=== PATIENT | male | born 1955 | race Caucasian/White ===

== ENCOUNTER → 2017-08-25 | Outpatient (CLI) | payer OTHER ==
[~2017-08-25] MED LIST: LISI20TA3 PO
[2017-08-25 18:22] LABS: ALT/SGPT 56 U/L (12-78); AST/SGOT 68 U/L (15-37); BLOOD UREA NITROGEN 9 mg/dl (7-18); CALCIUM 9.1 mg/dl (8.5-10.1); CARBON DIOXIDE 20 mmol/L (21-32); CHOLESTEROL 150 mg/dl (0-200); CREATININE 1.57 mg/dl (0.60-1.40); GLUCOSE 100 mg/dl (70-99); POTASSIUM 3.9 mmol/L (3.5-5.1); SODIUM 140 mmol/L (136-145)
[2017-08-25 18:25] LABS: ALBUMIN 4.2 gm/dl (3.4-5.0); ALKALINE PHOSPHATASE 66 U/L (45-117); TOTAL PROTEIN 7.9 gm/dl (6.4-8.2)
== END | disposition home or self-care (01) ==
LOC: C.LABPVFM 14:47
PROVIDERS: ATTEND Family Medicine
DX: E78.00 Pure hypercholesterolemia, unspecified (principal); I10 Essential (primary) hypertension; Z12.5 Encounter for screening for malignant neoplasm of prostate

== ENCOUNTER 2023-01-06 20:42 | Observation (INO) ==
[2023-01-06 21:29] LABS: Hematocrit (blood only) 33.9 % (42.0-52.0); Hemoglobin 11.2 g/dl (14.0-18.0); Mean Corpuscular Hemoglobin 33.2 pg (25.0-34.0); Mean Corpuscular Volume 100.6 fL (80.0-100.0); RDW Coefficient of Variation 12.5 % (11.5-14.5); RDW Standard Deviation 45.6 fL (36.4-46.3); Red Blood Count 3.37 M/uL (4.70-6.10); White Blood Count 5.08 K/ul (4.8-10.8)
[2023-01-06 21:39] LABS: Albumin Level 4.3 gm/dl (3.4-5.0); Bilirubin,Total 0.4 mg/dl (0.2-1.0); Calcium 8.5 mg/dl (8.6-10.3); Potassium 3.3 mmol/L (3.5-5.1)
[2023-01-06 21:43] LABS: Partial Thromboplastin Ratio 0.8; Partial Thromboplastin Time 23.9 Seconds (21.0-31.0); Prothrombin Time 11.4 Seconds (9.0-12.0)
[2023-01-06 21:44] LABS: Albumin Globulin Ratio 1.5 (0.9-2); BUN Creatinine Ratio 14.9 (10-20); Creatinine Clr Calc Pharmacy 46.2 ml/min; Est GFR (African American) 55.6 ml/min; Est GFR (Non-African American) 47.9 ml/min; Globulin 2.8 gm/dl (2.5-4.0); Total Protein 7.1 gm/dl (6.0-8.3)
[2023-01-06 21:51] LABS: Troponin I High Sensitivity 4.5 pg/ml (0-20)
[2023-01-06 22:09] LABS: iSTAT Creatinine 1.9 mg/dl (0.6-1.3); iSTAT Hemoglobin 12.6 g/dl (14.0-18.0); iSTAT Ionized Calcium 1.06 mmol/l (1.12-1.32); iSTAT Potassium 3.5 mmol/L (3.3-5.0)
[2023-01-06] MEDS ORDERED: OPTIRAY 320 100ml IV ONE (22:22)
[2023-01-06 22:25] LABS: Basophils # (auto) 0.03 K/uL (0-0.2); Basophils % (auto) 0.6 %; Eosinophils # (auto) 0.09 K/uL (0-0.50); Eosinophils % (auto) 1.8 %; Immature Granulocytes # (auto) 0.03 K/uL (0.01-0.20); Immature Granulocytes % (auto) 0.6 %; Lymphocytes # (auto) 1.68 K/uL (1.2-3.4); Lymphocytes % (auto) 32.7 %; Mean Platelet Volume 12.1 fL (9.4-12.4); Monocytes # (auto) 0.55 K/uL (0.11-0.59); Monocytes % (auto) 10.7 %; Neutrophils # (auto) 2.76 K/uL (1.40-6.50); Neutrophils % (auto) 53.6 %; Platelet Count 141 K/uL (130-400); Tear Drop Cells 1+
--- NOTE | 2023-01-06 23:01 | CT Scan Report ---
Exam(s): CT HEAD Without Contrast EXAM: CT Head Without Intravenous Contrast CLINICAL HISTORY: Reason for exam: fall. TECHNIQUE: Axial computed tomography images of the head/brain without intravenous contrast. Automated exposure control was utilized for the study. A dose lowering technique was utilized adhering to the principles of ALARA. COMPARISON: No relevant prior studies available. FINDINGS: Brain: Unremarkable. No hemorrhage. No significant white matter disease. No edema. Ventricles: Unremarkable. No ventriculomegaly. Bones/joints: Unremarkable. No acute fracture. Soft tissues: Unremarkable. Sinuses: Unremarkable as visualized. No acute sinusitis. Mastoid air cells: Unremarkable as visualized. No mastoid effusion. IMPRESSION: Normal head/brain CT. Electronically signed by: Fuentes Villalobos MD 01/06/23 23:00 PM
--- NOTE | 2023-01-06 23:05 | CT Scan Report ---
Exam(s): CT ABDOMEN + PELVIS With Contrast IV Amt: 91 ML OPTIRAY 320 EXAM: CT Abdomen and Pelvis With Intravenous Contrast CLINICAL HISTORY: Reason for exam: gi bleed. TECHNIQUE: Axial computed tomography images of the abdomen and pelvis with intravenous contrast. Automated exposure control was utilized for the study. A dose lowering technique was utilized adhering to the principles of ALARA. CONTRAST: Patient received 91 ML OPTIRAY 320 of IV contrast COMPARISON: No relevant prior studies available. FINDINGS: Lung bases: Unremarkable. No mass. No consolidation. ABDOMEN: Liver: Unremarkable. No mass. Gallbladder and bile ducts: The gallbladder is contracted. Slight gallbladder wall thickening is present. No gallstones or definite surrounding edema. No ductal dilation. Pancreas: Unremarkable. No mass. No ductal dilation. Spleen: Unremarkable. No splenomegaly. Adrenals: Unremarkable. No mass. Kidneys and ureters: Unremarkable. No solid mass. No hydronephrosis. Stomach and bowel: Unremarkable. No obstruction. No mucosal thickening. PELVIS: Appendix: The appendix is normal. Bowel loops are nondilated. No acute inflammatory changes are seen involving the bowel. Bladder: Unremarkable. No mass. Reproductive: Unremarkable as visualized. ABDOMEN and PELVIS: Intraperitoneal space: Unremarkable. No free air. No significant fluid collection. Bones/joints: Moderate multilevel degenerative changes are seen throughout the spine. No acute fracture or subluxation is seen. Soft tissues: 1 cm umbilical hernia containing fat. Vasculature: The abdominal aorta is mildly calcified but nondilated. There is no aneurysm or dissection. Lymph nodes: Unremarkable. No enlarged lymph nodes. IMPRESSION: The appendix is normal. Bowel loops are nondilated. No acute inflammatory changes are seen involving the bowel. No GI hemorrhage is identified. No acute process is seen within the abdomen or pelvis. Electronically signed by: Fuentes Villalobos MD 01/06/23 23:04 PM
--- NOTE | 2023-01-06 23:36 | Emergency Department Note ---
Impression & Plan Alcohol overdose, Acute lower GI bleeding Admit to the [facility] ED Provider Note NAME: BUCKY CRUZ AGE: 67 SEX: M ARRIVES VIA: Ambulance INFORMANT: [Patient] ED PROVIDER(S): Maggi Morley DO CHIEF COMPLAINT: Fall PLAN: Disposition: Admit to the [facility] Condition: Fair MEDICAL DECISION MAKING: This is a 67-year-old male patient who fell through a screen door at home and then became incontinent of bloody stool. He was found this way by his girlfriend. He does have a history of alcohol abuse. EMS was called and he was transported here where he proceeded to have another episode of hematochezia. Patient remained hemodynamically stable. H&H were stable. He does have routine colonoscopies which have been normal as the patient has a strong family history of colon cancer. Blood alcohol level was greater than 300. Patient normal renal function and normal LFTs except for mildly elevated ammonia level. Patient had a normal EKG and normal troponin. CT scan of the brain was normal and CT scan of the abdomen/pelvis were normal. I discussed the case with the [facility] and they will evaluate for further inpatient care. Triage Nursing notes reviewed and agree with them. [Additional history obtained from] his daughters who are at the bedside Vital Signs: reviewed and unremarkable Differential diagnosis: Diverticular bleed, anemia, lower GI bleed, syncope ER treatment provided: Cardiac monitoring Twelve-lead EKG Diagnostics interpreted by me: ECG: Normal sinus rhythm at a rate of [address] segment elevation or signs of ischemia. There is no ectopy. Cardiac Monitoring: [none] Laboratory studies: [See below] [] Imaging studies: As per stat rad CT scan of the brain: No acute traumatic injury CT scan of the abdomen/pelvis: See report HPI: 67/M arrives for evaluation of fall and hematochezia. Patient had come home from work and drank his usual 4 beers and shots of whiskey. He had been cooking a pork chop at the stove which was last thing he remembers. His girlfriend arrived at home and found that he had fallen through a screen door. The patient got up and had a large bright red bloody diarrheal bowel movement. He remained slightly confused after this. 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 HOME MEDICATIONS:See list ALLERGIES:See list VITALS:[See Below] PHYSICAL EXAMINATION: HEENT: Head - normocephalic and atraumatic. Pupils are equal, round, and reactive to light. Extraocular eye muscles are intact, and sclera are anict marge. Nose - moist nasal mucosa without discharge. Mouth - moist buccal mucosa. Oropharynx is nonerythematous and there is no tonsillar exudate or edema noted. Neck: Supple; no cervical lymphadenopathy appreciated. No JVD Heart: Regular rate and rhythm. There is a normal S1 and S2 with no murmurs, clicks, or gallops appreciated. Lungs: Clear to auscultation bilaterally with no wheezes, rales, or rhonchi. Abdomen: Soft, completely nontender, nondistended, with good bowel sounds. There are no palpable pulsatile masses or hepatosplenomegaly. There is no guarding, rigidity, or rebound noted. Extremities: Large abrasion to the left lateral forearm. There are easily palpable peripheral pulses. Skin: warm and dry with good turgor and no rashes. ED COURSE: Times/Reassessments: 2100 the patient was evaluated in room C7. A complete his tory and physical was performed. An order was placed for continuous cardiac monitoring. Patient was in a normal sinus rhythm at a rate of 92. A twelve-lead EKG was obtained as described above. Maggi Morley DO Past Med/Surg History Social History Smoking Status: Former smoker Second Hand Exposure: No; Do You Dip or Chew Tobacco: No; Tobacco Cessation Education Requested by Patient: No Hx Alcohol Use: Yes Alcohol type: beer Hx Substance Use: No Preferred Language: Croatian Communication Ability: Effective Radio Equipment Repairer Required: No Beliefs That Will Affect Care: None Current Living Situation: Significant Other Other Information That Helps Us Care for You: No Feels Safe at Home: Yes Safety Concerns: Feels Safe At This Time Assistive Devices: Glasses Allergies Allergies Allergy/AdvReac Type Severity Reaction Status Date / Time Sutures Allergy Allergy to Verified 01/07/23 01:31 cat gut sutures Home Meds Home Medications Medication Instructions Recorded Confirmed fenofibrate nanocrystallized 145 145 mg PO DAILY 01/06/23 01/06/23 mg tablet lisinopril 40 mg tablet 40 mg PO DAILY 01/06/23 01/06/23 tamsulosin 0.4 mg capsule 0.4 mg PO DAILY 01/06/23 01/06/23 Results & Data (ED) Vital Signs Vital Signs - 24 hr 01/06/23 20:53 01/06/23 20:53 01/06/23 20:53 Temperature 36.5 C Temperature Source Oral Pulse Rate 96 H Pulse Rate [Apical] 96 H Pulse Rhythm Regular Pulse Rhythm [Apical] Regular Pulse Strength Normal Pulse Strength [Apical] Normal Respiratory Rate 18 18 Respiratory Effort / Characteristics Non-Labored Non-Labored Respiratory Depth Normal Normal Respiratory Pattern Regular Regular Blood Pressure 158/92 H Blood Pressure [Right Arm] 158/92 H Blood Pressure Mean 114 Blood Pressure Mean [Right Arm] 114 Blood Pressure Position Lying Blood Pressure Position [Right Arm] Pulse Oximetry 96 96 Oxygen Delivery Method Room Air Room Air Room Air Sepsis Recent Fever Within 48 Hours No Sepsis New/Unexplained Change in Mental Status No Sepsis Action Taken by Nursing No Action Required 01/06/23 21:18 01/06/23 20:55 01/06/23 23:09 Temperature Temperature Source Pulse Rate 104 H Pulse Rate [Apical] 85 Pulse Rhythm Pulse Rhythm [Apical] Regular Pulse Strength Pulse Strength [Apical] Normal Respiratory Rate 20 Respiratory Effort / Characteristics Non-Labored Spontaneous Respiratory Depth Normal Respiratory Pattern Regular Blood Pressure Blood Pressure [Right Arm] 123/74 Blood Pressure Mean Blood Pressure Mean [Right Arm] 90 Blood Pressure Position Blood Pressure Position [Right Arm] Lying Pulse Oximetry 99 95 Oxygen Delivery Method Room Air Room Air Sepsis Recent Fever Within 48 Hours Sepsis New/Unexplained Change in Mental Status Sepsis Action Taken by Nursing Laboratory Data 01/06/23 21:07 01/06/23 21:07 Lab Results 01/06/23 01/06/23 01/06/23 Range/Units 21:07 21:07 21:07 WBC 5.08 (4.8-10.8) K/ul RBC 3.37 L (4.70-6.10) M/uL Hgb 11.2 L (14.0-18.0) g/dl POC Hgb (14.0-18.0) g/dl Hct 33.9 L (42.0-52.0) % POC Hct (42-52) % MCV 100.6 H (80.0-100.0) fL MCH 33.2 (25.0-34.0) pg MCHC 33.0 (32.0-36.0) g/dL RDW Std Deviation 45.6 (36.4-46.3) fL RDW Coeff of Alex 12.5 (11.5-14.5) % Plt Count 141 (130-400) K/uL MPV 12.1 (9.4-12.4) fL Immature Gran % (Auto) 0.6 % Neut % (Auto) 53.6 % Lymph % (Auto) 32.7 % [place] % (Auto) 10.7 % Eos % (Auto) 1.8 % Baso % (Auto) 0.6 % Neut # (Auto) 2.76 (1.40-6.50) K/uL Lymph # (Auto) 1.68 (1.2-3.4) K/uL [place] # (Auto) 0.55 (0.11-0.59) K/uL Eos # (Auto) 0.09 (0-0.50) K/uL Baso # (Auto) 0.03 (0-0.2) K/uL Immature Gran # (Auto) 0.03 (0.01-0.20) K/uL Tear Drop Cells 1+ PT 11.4 (9.0-12.0) Seconds INR 1.0 (0.9-1.1) APTT 23.9 (21.0-31.0) Seconds PTT Ratio 0.8 POC Sodium (135-144) mmol/L Sodium (136-145) mmol/L POC Potassium (3.3-5.0) mmol/L Potassium (3.5-5.1) mmol/L POC Chloride (101-112) mmol/L Chloride (98-107) mmol/L Carbon Dioxide (21-32) mmol/L POC Total CO2 (24-31) mmol/L Anion Gap (3-11) POC Anion Gap (16-25) mmol/L POC BUN (7-18) mg/dl BUN (6-23) mg/dl Creatinine (0.6-1.4) mg/dl POC Creatinine (0.6-1.3) mg/dl Est Cr Clr Drug Dosing ml/min Est GFR ( Amer) ml/min Est GFR (Non-Af Amer) ml/min BUN/Creatinine Ratio (10-20) Glucose (70-99(Fasting)) mg/dl POC Glucose (other) (70-99) mg/dl Calcium (8.6-10.3) mg/dl POC Ioniz Calcium Mckenna (1.12-1.32) mmol/l Total Bilirubin (0.2-1.0) mg/dl AST (13-39) U/L ALT (7-52) U/L Alkaline Phosphatase (34-104) U/L Ammonia (18-72) umol/L Troponin I High Sens (0-20) pg/ml Total Protein (6.0-8.3) gm/dl Albumin (3.4-5.0) gm/dl Globulin (2.5-4.0) gm/dl Albumin/Globulin Ratio (0.9-2) POC Stool Occult Blood (Negative) Ethyl Alcohol mg/dL (<10.0) mg/dl SARS-CoV-2, RNA, NAAT (NEGATIVE) Blood Type B Positive Blood Type Recheck Antibody Screen NEGATIVE 01/06/23 01/06/23 01/06/23 Range/Units 21:07 21:07 21:18 WBC (4.8-10.8) K/ul RBC (4.70-6.10) M/uL Hgb (14.0-18.0) g/dl POC Hgb (14.0-18.0) g/dl Hct (42.0-52.0) % POC Hct (42-52) % MCV (80.0-100.0) fL MCH (25.0-34.0) pg MCHC (32.0-36.0) g/dL RDW Std Deviation (36.4-46.3) fL RDW Coeff of Alex (11.5-14.5) % Plt Count (130-400) K/uL MPV (9.4-12.4) fL Immature Gran % (Auto) % Neut % (Auto) % Lymph % (Auto) % [place] % (Auto) % Eos % (Auto) % Baso % (Auto) % Neut # (Auto) (1.40-6.50) K/uL Lymph # (Auto) (1.2-3.4) K/uL [place] # (Auto) (0.11-0.59) K/uL Eos # (Auto) (0-0.50) K/uL Baso # (Auto) (0-0.2) K/uL Immature Gran # (Auto) (0.01-0.20) K/uL Tear Drop Cells PT (9.0-12.0) Seconds INR (0.9-1.1) APTT (21.0-31.0) Seconds PTT Ratio POC Sodium (135-144) mmol/L Sodium 136 (136-145) mmol/L POC Potassium (3.3-5.0) mmol/L Potassium 3.3 L (3.5-5.1) mmol/L POC Chloride (101-112) mmol/L Chloride 107 (98-107) mmol/L Carbon Dioxide 18 L (21-32) mmol/L POC Total CO2 (24-31) mmol/L Anion Gap 11 (3-11) POC Anion Gap (16-25) mmol/L POC BUN (7-18) mg/dl BUN 22 (6-23) mg/dl Creatinine 1.48 H (0.6-1.4) mg/dl POC Creatinine (0.6-1.3) mg/dl Est Cr Clr Drug Dosing 46.2 ml/min Est GFR ( Amer) 55.6 ml/min Est GFR (Non-Af Amer) 47.9 ml/min BUN/Creatinine Ratio 14.9 (10-20) Glucose 120 H (70-99(Fasting)) mg/dl POC Glucose (other) (70-99) mg/dl Calcium 8.5 L (8.6-10.3) mg/dl POC Ioniz Calcium Mckenna (1.12-1.32) mmol/l Total Bilirubin 0.4 (0.2-1.0) mg/dl AST 81 H (13-39) U/L ALT 36 (7-52) U/L Alkaline Phosphatase 49 (34-104) U/L Ammonia (18-72) umol/L Troponin I High Sens 4.5 (0-20) pg/ml Total Protein 7.1 (6.0-8.3) gm/dl Albumin 4.3 (3.4-5.0) gm/dl Globulin 2.8 (2.5-4.0) gm/dl Albumin/Globulin Ratio 1.5 (0.9-2) POC Stool Occult Blood Positive A (Negative) Ethyl Alcohol mg/dL 331.2 H (<10.0) mg/dl SARS-CoV-2, RNA, NAAT (NEGATIVE) Blood Type Blood Type Recheck Antibody Screen 01/06/23 01/06/23 01/06/23 Range/Units 21:33 21:34 21:56 WBC (4.8-10.8) K/ul RBC (4.70-6.10) M/uL Hgb (14.0-18.0) g/dl POC Hgb 12.6 L (14.0-18.0) g/dl Hct (42.0-52.0) % POC Hct 37 L (42-52) % MCV (80.0-100.0) fL MCH (25.0-34.0) pg MCHC (32.0-36.0) g/dL RDW Std Deviation (36.4-46.3) fL RDW Coeff of Alex (11.5-14.5) % Plt Count (130-400) K/uL MPV (9.4-12.4) fL Immature Gran % (Auto) % Neut % (Auto) % Lymph % (Auto) % [place] % (Auto) % Eos % (Auto) % Baso % (Auto) % Neut # (Auto) (1.40-6.50) K/uL Lymph # (Auto) (1.2-3.4) K/uL [place] # (Auto) (0.11-0.59) K/uL Eos # (Auto) (0-0.50) K/uL Baso # (Auto) (0-0.2) K/uL Immature Gran # (Auto) (0.01-0.20) K/uL Tear Drop Cells PT (9.0-12.0) Seconds INR (0.9-1.1) APTT (21.0-31.0) Seconds PTT Ratio POC Sodium 139 (135-144) mmol/L Sodium (136-145) mmol/L POC Potassium 3.5 (3.3-5.0) mmol/L Potassium (3.5-5.1) mmol/L POC Chloride 109 (101-112) mmol/L Chloride (98-107) mmol/L Carbon Dioxide (21-32) mmol/L POC Total CO2 19 L (24-31) mmol/L Anion Gap (3-11) POC Anion Gap 16.0 (16-25) mmol/L POC BUN 20 H (7-18) mg/dl BUN (6-23) mg/dl Creatinine (0.6-1.4) mg/dl POC Creatinine 1.9 H (0.6-1.3) mg/dl Est Cr Clr Drug Dosing ml/min Est GFR ( Amer) ml/min Est GFR (Non-Af Amer) ml/min BUN/Creatinine Ratio (10-20) Glucose (70-99(Fasting)) mg/dl POC Glucose (other) 117 H (70-99) mg/dl Calcium (8.6-10.3) mg/dl POC Ioniz Calcium Mckenna 1.06 L (1.12-1.32) mmol/l Total Bilirubin (0.2-1.0) mg/dl AST (13-39) U/L ALT (7-52) U/L Alkaline Phosphatase (34-104) U/L Ammonia 85.0 H (18-72) umol/L Troponin I High Sens (0-20) pg/ml Total Protein (6.0-8.3) gm/dl Albumin (3.4-5.0) gm/dl Globulin (2.5-4.0) gm/dl Albumin/Globulin Ratio (0.9-2) POC Stool Occult Blood (Negative) Ethyl Alcohol mg/dL (<10.0) mg/dl SARS-CoV-2, RNA, NAAT (NEGATIVE) Blood Type Blood Type Recheck B Positive Antibody Screen 01/06/23 Range/Units Unknown WBC (4.8-10.8) K/ul RBC (4.70-6.10) M/uL Hgb (14.0-18.0) g/dl POC Hgb (14.0-18.0) g/dl Hct (42.0-52.0) % POC Hct (42-52) % MCV (80.0-100.0) fL MCH (25.0-34.0) pg MCHC (32.0-36.0) g/dL RDW Std Deviation (36.4-46.3) fL RDW Coeff of Alex (11.5-14.5) % Plt Count (130-400) K/uL MPV (9.4-12.4) fL Immature Gran % (Auto) % Neut % (Auto) % Lymph % (Auto) % [place] % (Auto) % Eos % (Auto) % Baso % (Auto) % Neut # (Auto) (1.40-6.50) K/uL Lymph # (Auto) (1.2-3.4) K/uL [place] # (Auto) (0.11-0.59) K/uL Eos # (Auto) (0-0.50) K/uL Baso # (Auto) (0-0.2) K/uL Immature Gran # (Auto) (0.01-0.20) K/uL Tear Drop Cells PT (9.0-12.0) Seconds INR (0.9-1.1) APTT (21.0-31.0) Seconds PTT Ratio POC Sodium (135-144) mmol/L Sodium (136-145) mmol/L POC Potassium (3.3-5.0) mmol/L Potassium (3.5-5.1) mmol/L POC Chloride (101-112) mmol/L Chloride (98-107) mmol/L Carbon Dioxide (21-32) mmol/L POC Total CO2 (24-31) mmol/L Anion Gap (3-11) POC Anion Gap (16-25) mmol/L POC BUN (7-18) mg/dl BUN (6-23) mg/dl Creatinine (0.6-1.4) mg/dl POC Creatinine (0.6-1.3) mg/dl Est Cr Clr Drug Dosing ml/min Est GFR ( Amer) ml/min Est GFR (Non-Af Amer) ml/min BUN/Creatinine Ratio (10-20) Glucose (70-99(Fasting)) mg/dl POC Glucose (other) (70-99) mg/dl Calcium (8.6-10.3) mg/dl POC Ioniz Calcium Mckenna (1.12-1.32) mmol/l Total Bilirubin (0.2-1.0) mg/dl AST (13-39) U/L ALT (7-52) U/L Alkaline Phosphatase (34-104) U/L Ammonia (18-72) umol/L Troponin I High Sens (0-20) pg/ml Total Protein (6.0-8.3) gm/dl Albumin (3.4-5.0) gm/dl Globulin (2.5-4.0) gm/dl Albumin/Globulin Ratio (0.9-2) POC Stool Occult Blood (Negative) Ethyl Alcohol mg/dL (<10.0) mg/dl SARS-CoV-2, RNA, NAAT NEGATIVE (NEGATIVE) Blood Type Blood Type Recheck Antibody Screen Administered Medications Fenofibrate (Fenofibrate Nanocrystallized 145 Mg Tablet) 145 mg PO DAILY [facility] Stop: 02/06/23 08:59 Last Admin: 01/07/23 09:14 Dose: 145 mg Documented By: OO Folic Acid (Folic Acid 400 Mcg Tab) [facility] Stop: 02/06/23 12:14 Last Admin: 01/07/23 13:03 Dose: 400 mcg Documented By: OJose Pantoprazole Sodium (Pantoprazole 40 Mg Tab) [facility] [place] Stop: 02/06/23 08:59 Last Admin: 01/07/23 09:14 Dose: 40 mg Documented By: OJose Tamsulosin HCl (Tamsulosin Hcl 0.4 Mg Cap) 0.4 mg PO DAILY [facility] Stop: 02/06/23 08:59 Last Admin: 01/07/23 09:15 Dose: 0.4 mg Documented By: OJose Thiamine HCl (Thiamine Hcl 100 Mg Tab) 100 mg PO QAM [facility] Stop: 02/06/23 12:14 Last Admin: 01/07/23 13:03 Dose: 100 mg Documented By: OJose Discontinued Medications Ioversol (Optiray 320 100ml) 91 ml IV ONCE ONE Stop: 01/06/23 22:23 Last Admin: 01/06/23 22:22 Dose: 91 ml Documented By: PEDRO Potassium Chloride (Potassium Chloride Crtab 20 Meq Tabcr) 40 meq PO NOW ONE Stop: 01/07/23 00:48 Last Admin: 01/07/23 01:32 Dose: 40 meq Documented By: ARR Imaging Data Radiologist's Impression: Abdomen/Pelvis CT 01/06/23 21:17 Exam(s): CT ABDOMEN + PELVIS With Contrast IV Amt: 91 ML OPTIRAY 320 EXAM: CT Abdomen and Pelvis With Intravenous Contrast CLINICAL HISTORY: Reason for exam: gi bleed. TECHNIQUE: Axial computed tomography images of the abdomen and pelvis with intravenous contrast. Automated exposure control was utilized for the study. A dose lowering technique was utilized adhering to the principles of ALARA. CONTRAST: Patient received 91 ML OPTIRAY 320 of IV contrast COMPARISON: No relevant prior studies available. FINDINGS: Lung bases: Unremarkable. No mass. No consolidation. ABDOMEN: Liver: Unremarkable. No mass. Gallbladder and bile ducts: The gallbladder is contracted. Slight gallbladder wall thickening is present. No gallstones or definite surrounding edema. No ductal dilation. Pancreas: Unremarkable. No mass. No ductal dilation. Spleen: Unremarkable. No splenomegaly. Adrenals: Unremarkable. No mass. Kidneys and ureters: Unremarkable. No solid mass. No hydronephrosis. Stomach and bowel: Unremarkable. No obstruction. No mucosal thickening. PELVIS: Appendix: The appendix is normal. Bowel loops are nondilated. No acute inflammatory changes are seen involving the bowel. Bladder: Unremarkable. No mass. Reproductive: Unremarkable as visualized. ABDOMEN and PELVIS: Intraperitoneal space: Unremarkable. No free air. No significant fluid collection. Bones/joints: Moderate multilevel degenerative changes are seen throughout the spine. No acute fracture or subluxation is seen. Soft tissues: 1 cm umbilical hernia containing fat. Vasculature: The abdominal aorta is mildly calcified but nondilated. There is no aneurysm or dissection. Lymph nodes: Unremarkable. No enlarged lymph nodes. IMPRESSION: The appendix is normal. Bowel loops are nondilated. No acute inflammatory changes are seen involving the bowel. No GI hemorrhage is identified. No acute process is seen within the abdomen or pelvis. Electronically signed by: Fuentes Villalobos MD 01/06/23 23:[address] 01/06/23 21:17 Exam(s): CT HEAD Without Contrast EXAM: CT Head Without Intravenous Contrast CLINICAL HISTORY: Reason for exam: fall. TECHNIQUE: Axial computed tomography images of the head/brain without intravenous contrast. Automated exposure control was utilized for the study. A dose lowering technique was utilized adhering to the principles of ALARA. COMPARISON: No relevant prior studies available. FINDINGS: Brain: Unremarkable. No hemorrhage. No significant white matter disease. No edema. Ventricles: Unremarkable. No ventriculomegaly. Bones/joints: Unremarkable. No acute fracture. Soft tissues: Unremarkable. Sinuses: Unremarkable as visualized. No acute sinusitis. Mastoid air cells: Unremarkable as visualized. No mastoid effusion. IMPRESSION: Normal head/brain CT. Electronically signed by: Fuentes Villalobos MD 01/06/23 23:00 PM Discharge Plan Visit Data Chief Complaint: Alcohol Intoxication Stated Complaint: ALCOHOL INTOXICATION/INCONTINENT ED Provider: Maggi Morley Discharge Problem: Alcohol overdose, Acute lower GI bleeding Patient Disposition: Admitted As Inpatient Discharge Instructions Interventions: ED Discharge Assessment Last Done: 01/07/23 01:14
--- NOTE | 2023-01-07 00:02 | History & Physical Report ---
Date of Service January 07, 2023 Assessment & Plan (1) Syncope: Plan: 67yo Male with PMH HLD HTN BPH CKD3 here for syncope hematochezia. Syncope -concern from cardiac, anemia, alcohol, seizure related causes -hbg 11.2 -EKG NSR -CT head wnl -admit to PCU, cafeteria monitor -trop negative -CT A/P: The appendix is normal. Bowel loops are nondilated. No acute inflammatory changes are seen involving the bowel. No GI hemorrhage is identified. No acute process is seen within the abdomen or pelvis. no noted diverticuli -ordered echo -ordered orthostatics -ordered seizure precautions -ordered AWSS Hematochezia -started on protonix 40mg daily -consult placed to GI -trend cbc Alcohol Abuse -patient notes 2-3 beers daily, has described higher amounts to others -ordered AWSS -ammonia 88 -AST elevated consistent with alcohol use HTN -continue lisinopril HLD -continue fenofibrate BPH -continue tamsulosin FENa: npo Code Status: full DVT PPX: scds Dispo: PCU, AWSS ordered Rhonda Hatch D.O. PGY 2, FCM (2) HTN (hypertension): (3) HLD (hyperlipidemia): (4) BPH (benign prostatic hyperplasia): (5) CKD (chronic kidney disease): (6) Hematochezia: History of Present Illness Chief Complaint: Syncope hematochezia Primary Care Provider: Yareli Winston 67yo Male with PMH HLD HTN BPH CKD3 here for possible syncope and hematochezia. Per patient, earlier today he was outside cooking [place], drank 3 beers, next thing he knows he's on the floor surrounded by EMS. He has never passed out like this before. He was told he fell and his girlfriend called 911. Patient states he was told he had significant blood per rectum, he doesn't feel like he bled that much. He says he normally has some blood on his toilet paper, prior colonoscopies had 'polyps' which he thinks bleed every so often. At this time he denies any headache dizziness pain nausea vomiting SOB weakness. 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 States he drinks 2-3 beers daily and a shot of bourbon every so often, quit smoking 12 years ago prior to that has 48 pack year history, denies chewing tobacco or marijuana. He denies any recent changes to his medication or daily habits, only uses tamsulosin twice a week. He follows with his PCP yearly, had a colonoscopy last year that was normal. He has a family history of colon cancer. Per ED patient had syncope fell through a screen door, became incontinent of bloody stool and urine, girlfriend called EMS, patient transported to ED where he had another bout of bloody stool. Allergies Allergy/AdvReac Type Severity Reaction Status Date / Time Sutures Allergy Allergy to Verified 01/07/23 01:31 cat gut sutures Home Medications Medication Instructions Recorded Confirmed Type fenofibrate nanocrystallized 145 145 mg PO DAILY 01/06/23 01/06/23 History mg tablet lisinopril 40 mg tablet 40 mg PO DAILY 01/06/23 01/06/23 History tamsulosin 0.4 mg capsule 0.4 mg PO DAILY 01/06/23 01/06/23 History Past Med/Surg History Social History Smoking Status: Former smoker Second Hand Exposure: No; Do You Dip or Chew Tobacco: No; Tobacco Cessation Education Requested by Patient: No Hx Alcohol Use: Yes Alcohol type: beer Hx Substance Use: No Preferred Language: Iraqi Communication Ability: Effective Administrative Professional Required: No Beliefs That Will Affect Care: None Current Living Situation: Significant Other Other Information That Helps Us Care for You: No Feels Safe at Home: Yes Safety Concerns: Feels Safe At This Time Assistive Devices: Glasses Physical Exam Constitutional: WD/WN, vitals as above Eyes: PERRL, conjunctivae normal, anicteric sclerae ENMT: external ear and nose normal, oropharynx normal Neck: trachea midline, no thyromegaly Respiratory: normal respiratory effort, lungs clear to auscultation Cardiovascular: Rate/Rhythm: regular rate and regular rhythm Extremities: no edema Gastrointestinal (Abdomen): Inspection/Auscultation: abdomen normal to inspection Percussion/Palpation: abdomen soft; abdomen nontender Skin: no rashes, warm and dry Neurologic: normal touch/pain/proprioception, CN's II-XI intact bilaterally and moves all extremities Results & Data Results & Data Vital Signs (Past 12 Hours) Vital Signs Temp Pulse Pulse Resp BP BP Pulse Ox 01/06/23 23:09 85 20 123/74 95 01/06/23 20:55 104 H 01/06/23 21:18 99 01/06/23 20:53 96 H 18 158/92 H 96 01/06/23 20:53 01/06/23 20:53 36.5 C 96 H 18 158/92 H 96 O2 Del Method 01/06/23 23:09 Room Air 01/06/23 20:55 01/06/23 21:18 Room Air 01/06/23 20:53 Room Air 01/06/23 20:53 Room Air 01/06/23 20:53 Room Air Supervising Physician Co-Signing Physician Notes Patient seen and examined, chart reviewed, case discussed with Dr. Hatch and I agree with the assessment and plan as above. In brief, patient is a 67yo male with history of HTN, HLP, BPH and daily EtOH use presenting with possible syncope and hematochezia. Patient with colonoscopy in the last year with polyp removal. He denies history of hemorrhoids or diverticulosis. No prior rectal bleeding. No abdominal pain or cramping lately. As above, was cooking pork chops when he possibly passed out. He woke on the ground - incontinent of stool and urine. Reported hematochezia. EMS called - patient reportedly had a second episode of hematochezia. In the ER he is afebrile, HD stable, NAD. Exam: Nontoxic, resting comfortably Skin - intact, no rash HEENT - MMM, Neck supple Heart - +S1/S2, regular, no m/r/g Lungs - CTA Abd - Soft, NT/ND Ext - warm, well perfused Labs and images reviewed. Hgb=11.2, HCt=33.9 BUN=22 INR=1 Yyz=239 CT of the abdomen with no acute process Assessment/Plan: 67yo male with reported hematochezia. HD stable. H/H appropriate. No additional episodes of hematochezia presently. Monitor CBC GI consultation Remainder as above Monitor for EtOH withdrawal symptosm Resident Activity Tracking Resident Involvement: Resident Care Provided Care Provided: Adult [facility] Medicine
[2023-01-07] MEDS ORDERED: POTASSIUM CHLORIDE CRTAB 20 MEQ TABCR PO ONE (00:47)
[2023-01-07] MEDS ORDERED: ACETAMINOPHEN 325 MG TAB PO PRN (01:13)
--- NOTE | 2023-01-07 02:16 | Billing Data ---
Date of Service January 07, 2023 Coding Level of Care Code 77003 INT INP/OBS CARE
--- NOTE | 2023-01-07 02:17 | Billing Data ---
Date of Service January 07, 2023 Coding Level of Care Code 20996 INT INP/OBS CARE
--- NOTE | 2023-01-07 07:29 | Hospitalist Progress Note ---
Date of Service January 07, 2023 Assessment & Plan (1) Syncope: Plan: 67yo Male with PMH HLD HTN BPH CKD3 here for syncope hematochezia. Syncope -concern from cardiac, anemia, alcohol, seizure related causes -hbg 11.2 -EKG NSR, continue to monitor on telemetry. No events to date. -CT head wnl -trop negative -CT A/P: The appendix is normal. Bowel loops are nondilated. No acute inflammatory changes are seen involving the bowel. No GI hemorrhage is identified. No acute process is seen within the abdomen or pelvis.no noted diverticuli -TTE with mild concentric LVH, EF= 60-65% -orthostatics negative -ordered seizure precautions -ordered AWSS - Given alcohol level of 330, most likely explanation for syncope is secondary to intoxication Hematochezia -started on protonix 40mg daily -consult placed to GI; appreciate recommendations. No plans for EGD/colonoscopy at this time -trend cbc Alcohol Abuse -patient notes 2-3 beers daily, maximum of 6 beers a day -ordered AWSS -ammonia 88 -AST elevated consistent with alcohol use - thiamine, folate supplementation HTN -continue lisinopril HLD -continue fenofibrate BPH -continue tamsulosin FENa: npo Code Status: full DVT PPX: scds (2) HTN (hypertension): (3) HLD (hyperlipidemia): (4) BPH (benign prostatic hyperplasia): (5) CKD (chronic kidney disease): (6) Hematochezia: Admission and Anticipated Discharge Date Admission Date: January 07, 2023 Supervising Physician Co-Signing Physician Notes Attending attestation Pt seen and examined in concert with Dr. Waldrop. In agreement with the documented findings as noted in the resident documentation with any exceptions or additions as noted here. Resting comforatbly in bed without complaint at present. Precontemplative re: alcohol cessation at present. On examination, S1/S2 nl RRR no MCG. CTAB. Abd NT/ND BS+ve Loss of consciousness - multiple potential causes - imaging and evaluation as noted above. TTE without causative pathology. etOH elevated and likely primary contributor. Consider further w/u for seizure with further episodes. Hematochezia - trend CBC q6h, transfuse at 7. Alcohol use disorder - AWSS, precontemplative and declines resources at this time. Else see resident documentation as noted. Subjective Benitez was seen at bedside this morning. Feeling better. Denies lightheadedness, dizziness, abdominal pain. Nursing does note he had another bloody stool this afternoon. Review of Systems Review of Systems: As per above Physical Exam Physical Exam: Constitutional: well-appearing, no acute distress HEENT: NCAT, no conjunctival injection CV: regular rhythm, no murmur appreciated, extremities well-perfused, no LE edema Resp: CTABL, no wheezes/rales/rhonchi appreciated, no increased work of breathing GI: soft, nondistended, nontender, BS normoactive MSK: no gross deformities appreciated Skin: warm, dry, no rash appreciated Neuro: alert, oriented, no focal neurologic deficit appreciated Results & Data Results & Data Vital Signs (Past 12 Hours) Vital Signs Temp Pulse Pulse Resp BP BP Pulse Ox 01/07/23 03:12 36.6 C 91 H 17 94/56 L 98 01/07/23 01:22 94 H 01/07/23 01:29 36.5 C 96 H 16 133/73 98 01/07/23 01:14 80 20 122/70 96 01/06/23 23:09 85 20 123/74 95 01/06/23 20:55 104 H 01/06/23 21:18 99 01/06/23 20:53 96 H 18 158/92 H 96 01/06/23 20:53 01/06/23 20:53 36.5 C 96 H 18 158/92 H 96 O2 Del Method 01/07/23 03:12 Room Air 01/07/23 01:22 01/07/23 01:29 Room Air 01/07/23 01:14 Room Air 01/06/23 23:09 Room Air 01/06/23 20:55 01/06/23 21:18 Room Air 01/06/23 20:53 Room Air 01/06/23 20:53 Room Air 01/06/23 20:53 Room Air Resident Activity Tracking Resident Involvement: Resident Care Provided Care Provided: Adult Hospital Medicine
[2023-01-07 08:42] LABS: Potassium 4.7 mmol/L (3.5-5.1)
[2023-01-07 08:43] LABS: Calcium 8.8 mg/dl (8.6-10.3); Creatinine Clr Calc Pharmacy 49.6 ml/min; Est GFR (African American) 60.5 ml/min; Est GFR (Non-African American) 52.2 ml/min
[2023-01-07] MEDS ORDERED: lisinopril 40 MG TAB PO SCH (09:00)
[2023-01-07 09:08] LABS: Hematocrit (blood only) 30.2 % (42.0-52.0); Hemoglobin 10.4 g/dl (14.0-18.0); Mean Corpuscular Hemoglobin 34.1 pg (25.0-34.0); Mean Corpuscular Hgb Conc 34.4 g/dL (32.0-36.0); Platelet Count 152 K/uL (130-400); Platelet Estimate Normal (Normal); RDW Coefficient of Variation 12.8 % (11.5-14.5); RDW Standard Deviation 46.3 fL (36.4-46.3); Red Blood Count 3.05 M/uL (4.70-6.10); White Blood Count 3.27 K/ul (4.8-10.8)
[2023-01-07] MEDS ORDERED: LORazepam 2 MG/1 ML VIAL IV PRN ×3 (09:10)
[2023-01-07] MEDS ORDERED: Ativan IV Alcohol Withdrawal--Active Protocol IV PRN (09:10)
[2023-01-07] MEDS: PANTOprazole 40 MG TAB PO SCH (09:14)
[2023-01-07] MEDS: FENOFIBRATE NANOCRYSTALLIZED 145 MG TABLET PO SCH (09:14)
[2023-01-07] MEDS: TAMSULOSIN HCL 0.4 MG CAP PO SCH (09:15)
--- NOTE | 2023-01-07 09:45 | Gastrointestinal Consultation ---
Date of Consultation January 07, 2023 Assessment & Plan (1) Hematochezia: Patient with hematochezia/incontinence after an episode of syncope. Despite normal CT scan, there is clinical suspicion for ischemic colitis. Patient had a recent colonoscopy in 2021 that was unremarkable. -Continue to monitor H/H & monitor for further GI bleeding. -Would defer endoscopic evaluation at present given recent colonoscopy and possibility of ischemic colitis, however we will monitor the clinical situation for further changes or new symptoms. -Continue Protonix 40 mg daily given history of alcohol abuse. No current s/s of upper GI bleeding. Supervising Physician Co-Signing Physician Notes Agree with GALINA Gale as above Abd: Soft, NT, ND, +BS Continue current therapy and supportive care No plans for invasive testing at present. History of Present Illness Reason for Consultation: "GI bleed" Attending Physician: Claudio Schumacher MD History of Present Illness PATIENT IS BEING SE[facility] [place] [facility] HE SEES FOR HIS ROUTINE GI NEEDS Patient is a 67 yo male with PMH of CKD, BPH, HLD, and HTN who presented to [facility] ED after an episode of syncope and fecal incontinence. Upon presentation to the ED he had an episode of hematochezia. CT abdomen/pelvis (not enhanced with oral contrast) was unremarkable for acute issues. He had a colonoscopy in December 2021 that indicated several polyps & internal hemorrhoids. H/H at present is 10.4/30.2. He has a history of alcohol use with 2-3 beers per day. Family history of colon cancer is acknowledged and patient keeps up with his colorectal cancer surveillance. Alcohol level upon presentation was 331.2. He denies abdominal pain, ongoing bleeding, nausea, vomiting, heartburn, or reflux. His daughter is present during his evaluation and assists with history. He is currently tachycardic. His BP upon presentation was 158/92 and several hours after was 94/56. Allergies Allergy/AdvReac Type Severity Reaction Status Date / Time Sutures Allergy Allergy to Verified 01/07/23 01:31 cat gut sutures Home Medications Medication Instructions Recorded Confirmed Type fenofibrate nanocrystallized 145 145 mg PO DAILY 01/06/23 01/06/23 History mg tablet lisinopril 40 mg tablet 40 mg PO DAILY 01/06/23 01/06/23 History tamsulosin 0.4 mg capsule 0.4 mg PO DAILY 01/06/23 01/06/23 History Patient History Social History Smoking Status: Former smoker Second Hand Exposure: No; Do You Dip or Chew Tobacco: No; Tobacco Cessation Education Requested by Patient: No Hx Alcohol Use: Yes Alcohol type: beer Hx Substance Use: No Preferred Language: Syriac Communication Ability: Effective Washing Tub Operator Required: No Beliefs That Will Affect Care: None Current Living Situation: Significant Other Other Information That Helps Us Care for You: No Feels Safe at Home: Yes Safety Concerns: Feels Safe At This Time Assistive Devices: Glasses Review of Systems Constitutional: no fever and no chills Respiratory: no cough and no dyspnea Cardiovascular: no chest pain Gastrointestinal: + blood in stools (no further bleeding today); no abdominal pain and no heartburn Psychiatric: no problem reported Hematologic / Lymphatic: no unexplained weight loss Physical Exam Constitutional: well developed Respiratory: normal respiratory effort Cardiovascular: Rate/Rhythm: + tachycardic Gastrointestinal (Abdomen): normal bowel sounds, soft, nontender, no hepatosplenomegaly Musculoskeletal: Head/Neck/Chest: normocephalic Psychiatric: Orientation: alert and oriented x 3 Results & Data Vital Signs (Past 12 Hours) Vital Signs Temp Pulse Pulse Resp BP BP Pulse Ox 01/07/23 07:47 95 H 01/07/23 07:41 36.7 C 94 H 16 124/72 97 01/07/23 03:12 36.6 C 91 H 17 94/56 L 98 01/07/23 01:22 94 H 01/07/23 01:29 36.5 C 96 H 16 133/73 98 01/07/23 01:14 80 20 122/70 96 01/06/23 23:09 85 20 123/74 95 O2 Del Method 01/07/23 07:47 01/07/23 07:41 Room Air 01/07/23 03:12 Room Air 01/07/23 01:22 01/07/23 01:29 Room Air 01/07/23 01:14 Room Air 01/06/23 23:09 Room Air PG Care Time/CCT Total # of Minutes Spent Total Time Spent with Patient: Total time spent is greater than 50% in coordination of care (as documented) at patient's floor/unit and/or counseling patient: Coding Level of Care Code 87896 INT INP/OBS CARE MIN Diagnoses Hematochezia K92.1
--- NOTE | 2023-01-07 10:11 | Electrocardiogram Report ---
Test Reason : Blood Pressure : / mmHG Vent. Rate : 084 BPM Atrial Rate : 084 BPM P-R Int : 150 ms QRS Dur : 088 ms QT Int : 362 ms P-R-T Axes : 086 044 027 degrees QTc Int : 427 ms Normal sinus rhythm Normal ECG No previous ECGs available Confirmed by Michael Doe [id number] on 01/07/2023 10:11:14 AM Referred By: REFERRED SELF Confirmed By:Cecil Doe
[2023-01-07] MEDS: THIAMINE HCL 100 MG TAB PO SCH (13:03)
[2023-01-07] MEDS: FOLIC ACID 400 MCG TAB PO SCH (13:03)
[2023-01-07 16:53] LABS: Hematocrit (blood only) 31.3 % (42.0-52.0); Hemoglobin 10.3 g/dl (14.0-18.0)
[2023-01-08 06:42] LABS: Hematocrit (blood only) 30.6 % (42.0-52.0); Hemoglobin 9.9 g/dl (14.0-18.0); Mean Corpuscular Hemoglobin 33.1 pg (25.0-34.0); Mean Corpuscular Hgb Conc 32.4 g/dL (32.0-36.0); Mean Corpuscular Volume 102.3 fL (80.0-100.0); Mean Platelet Volume 11.5 fL (9.4-12.4); Platelet Count 112 K/uL (130-400); RDW Coefficient of Variation 12.6 % (11.5-14.5); RDW Standard Deviation 47.1 fL (36.4-46.3); Red Blood Count 2.99 M/uL (4.70-6.10); White Blood Count 3.84 K/ul (4.8-10.8)
[2023-01-08 06:56] LABS: BUN Creatinine Ratio 12.4 (10-20); Calcium 8.6 mg/dl (8.6-10.3); Creatinine Clr Calc Pharmacy 40.5 ml/min; Est GFR (African American) 47.3 ml/min; Est GFR (Non-African American) 40.8 ml/min; Potassium 3.9 mmol/L (3.5-5.1)
--- NOTE | 2023-01-08 07:30 | Hospitalist Progress Note ---
Date of Service January 08, 2023 Assessment & Plan (1) Syncope: Plan: 67yo Male with PMH HLD HTN BPH CKD3 here for syncope hematochezia. Syncope -concern from cardiac, anemia, alcohol, seizure related causes -hbg 11.2 -EKG NSR, continue to monitor on telemetry. No events to date. -CT head wnl -trop negative -CT A/P: The appendix is normal. Bowel loops are nondilated. No acute inflammatory changes are seen involving the bowel. No GI hemorrhage is identified. No acute process is seen within the abdomen or pelvis.no noted diverticuli -TTE with mild concentric LVH, EF= 60-65% -orthostatics negative -ordered seizure precautions -ordered AWSS - Given alcohol level of 330, most likely explanation for syncope is secondary to intoxication Hematochezia -started on protonix 40mg daily -consult placed to GI; appreciate recommendations. No plans for EGD/colonoscopy at this time -trend cbc Alcohol Abuse -patient notes 2-3 beers daily, maximum of 6 beers a day -ordered AWSS -ammonia 88 -AST elevated consistent with alcohol use - thiamine, folate supplementation HTN -continue lisinopril HLD -continue fenofibrate BPH -continue tamsulosin FENa: npo Code Status: full DVT PPX: scds (2) HTN (hypertension): (3) HLD (hyperlipidemia): (4) BPH (benign prostatic hyperplasia): (5) CKD (chronic kidney disease): (6) Hematochezia: Admission and Anticipated Discharge Date Admission Date: January 07, 2023 Review of Systems Review of Systems: As per above Physical Exam Physical Exam: Constitutional: well-appearing, no acute distress HEENT: NCAT, no conjunctival injection CV: regular rhythm, no murmur appreciated, extremities well-perfused, no LE edema Resp: CTABL, no wheezes/rales/rhonchi appreciated, no increased work of breathing GI: soft, nondistended, nontender, BS normoactive MSK: no gross deformities appreciated Skin: warm, dry, no rash appreciated Neuro: alert, oriented, no focal neurologic deficit appreciated Results & Data Results & Data Vital Signs (Past 12 Hours) Vital Signs Temp Pulse Pulse Resp BP Pulse Ox O2 Del Method 01/08/23 03:52 98 Room Air 01/08/23 03:52 36.7 C 76 18 143/83 H Room Air 01/07/23 22:00 89 01/07/23 23:12 36.6 C 85 17 150/77 H 98 Room Air
[2023-01-08] MEDS: TAMSULOSIN HCL 0.4 MG CAP PO SCH (08:18)
[2023-01-08] MEDS: PANTOprazole 40 MG TAB PO SCH (08:18)
[2023-01-08] MEDS: THIAMINE HCL 100 MG TAB PO SCH (08:18)
[2023-01-08] MEDS: FOLIC ACID 400 MCG TAB PO SCH (08:18)
[2023-01-08] MEDS: FENOFIBRATE NANOCRYSTALLIZED 145 MG TABLET PO SCH (08:19)
--- NOTE | 2023-01-08 16:10 | Discharge Summary ---
Date of Service January 08, 2023 Admission HPI Per Admitting Provider 67yo Male with PMH HLD HTN BPH CKD3 here for possible syncope and hematochezia. Per patient, earlier today he was outside cooking [employer], drank 3 beers, next thing he knows he's on the floor surrounded by EMS. He has never passed out like this before. He was told he fell and his girlfriend called 911. Patient states he was told he had significant blood per rectum, he doesn't feel like he bled that much. He says he normally has some blood on his toilet paper, prior colonoscopies had 'polyps' which he thinks bleed every so often. At this time he denies any headache dizziness pain nausea vomiting SOB weakness. 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 States he drinks 2-3 beers daily and a shot of bourbon every so often, quit smoking 12 years ago prior to that has 48 pack year history, denies chewing tobacco or marijuana. He denies any recent changes to his medication or daily habits, only uses tamsulosin twice a week. He follows with his PCP yearly, had a colonoscopy last year that was normal. He has a family history of colon cancer. Per ED patient had syncope fell through a screen door, became incontinent of bloody stool and urine, girlfriend called EMS, patient transported to ED where he had another bout of bloody stool. Principal Diagnosis Anemia Discharge Exam Constitutional: well-appearing, no acute distress HEENT: NCAT, no conjunctival injection CV: regular rhythm, no murmur appreciated, extremities well-perfused, no LE edema Resp: CTABL, no wheezes/rales/rhonchi appreciated, no increased work of jennifer athing GI: soft, nondistended, nontender, BS normoactive MSK: no gross deformities appreciated Skin: warm, dry, no rash appreciated Neuro: alert, oriented, no focal neurologic deficit appreciated Discharge Data Allergies Allergy/AdvReac Type Severity Reaction Status Date / Time Sutures Allergy Allergy to Verified 01/07/23 01:31 cat gut sutures Consultations 01/06/23 23:12 ED Decision to Admit Stat 01/07/23 00:00 Consult Gastroenterology Routine Ordered Studies 01/06/23 21:17 CT Abd and Pelvis [CT abd pelvis IV con only] Stat CT head/brain wo con Stat Laboratory Results WBC 3.84 K/ul (4.8-10.8) L 01/08/23 06:01 RBC 2.99 M/uL (4.70-6.10) L 01/08/23 06:01 Hgb 9.9 g/dl (14.0-18.0) L 01/08/23 06:01 POC Hgb 12.6 g/dl (14.0-18.0) L 01/06/23 21:56 Hct 30.6 % (42.0-52.0) L 01/08/23 06:01 POC Hct 37 % (42-52) L 01/06/23 21:56 MCV 102.3 fL (80.0-100.0) H 01/08/23 06:01 MCH 33.1 pg (25.0-34.0) 01/08/23 06:01 MCHC 32.4 g/dL (32.0-36.0) 01/08/23 06:01 RDW Std Deviation 47.1 fL (36.4-46.3) H 01/08/23 06:01 RDW Coeff of Alex 12.6 % (11.5-14.5) 01/08/23 06:01 Plt Count 112 K/uL (130-400) L 01/08/23 06:01 MPV 11.5 fL (9.4-12.4) 01/08/23 06:01 Immature Gran % (Auto) 0.6 % 01/06/23 21:07 Neut % (Auto) 53.6 % 01/06/23 21:07 Lymph % (Auto) 32.7 % 01/06/23 21:07 [place] % (Auto) 10.7 % 01/06/23 21:07 Eos % (Auto) 1.8 % 01/06/23 21:07 Baso % (Auto) 0.6 % 01/06/23 21:07 Neut # (Auto) 2.76 K/uL (1.40-6.50) 01/06/23 21:07 Lymph # (Auto) 1.68 K/uL (1.2-3.4) 01/06/23 21:07 [place] # (Auto) 0.55 K/uL (0.11-0.59) 01/06/23 21:07 Eos # (Auto) 0.09 K/uL (0-0.50) 01/06/23 21:07 Baso # (Auto) 0.03 K/uL (0-0.2) 01/06/23 21:07 Immature Gran # (Auto) 0.03 K/uL (0.01-0.20) 01/06/23 21:07 Platelet Estimate Normal (Normal) 01/07/23 08:11 Tear Drop Cells 1+ 01/06/23 21:07 PT 11.4 Seconds (9.0-12.0) 01/06/23 21:07 INR 1.0 (0.9-1.1) 01/06/23 21:07 APTT 23.9 Seconds (21.0-31.0) 01/06/23 21:07 PTT Ratio 0.8 01/06/23 21:07 POC Sodium 139 mmol/L (135-144) 01/06/23 21:56 Sodium 141 mmol/L (136-145) 01/08/23 06:01 POC Potassium 3.5 mmol/L (3.3-5.0) 01/06/23 21:56 Potassium 3.9 mmol/L (3.5-5.1) 01/08/23 06:01 POC Chloride 109 mmol/L (101-112) 01/06/23 21:56 Chloride 113 mmol/L (98-107) H 01/08/23 06:01 Carbon Dioxide 21 mmol/L (21-32) 01/08/23 06:01 POC Total CO2 19 mmol/L (24-31) L 01/06/23 21:56 Anion Gap 7 (3-11) 01/08/23 06:01 POC Anion Gap 16.0 mmol/L (16-25) 01/06/23 21:56 POC BUN 20 mg/dl (7-18) H 01/06/23 21:56 BUN 21 mg/dl (6-23) 01/08/23 06:01 Creatinine 1.69 mg/dl (0.6-1.4) H D 01/08/23 06:01 POC Creatinine 1.9 mg/dl (0.6-1.3) H 01/06/23 21:56 Est Cr Clr Drug Dosing 40.5 ml/min 01/08/23 06:01 Est GFR ( Amer) 47.3 ml/min 01/08/23 06:01 Est GFR (Non-Af Amer) 40.8 ml/min 01/08/23 06:01 BUN/Creatinine Ratio 12.4 (10-20) 01/08/23 06:01 Glucose 103 mg/dl (70-99(Fasting)) H 01/08/23 06:01 POC Glucose (other) 117 mg/dl (70-99) H 01/06/23 21:56 Calcium 8.6 mg/dl (8.6-10.3) 01/08/23 06:01 POC Ioniz Calcium Mckenna 1.06 mmol/l (1.12-1.32) L 01/06/23 21:56 Total Bilirubin 0.4 mg/dl (0.2-1.0) 01/06/23 21:07 AST 81 U/L (13-39) H 01/06/23 21:07 ALT 36 U/L (7-52) 01/06/23 21:07 Alkaline Phosphatase 49 U/L (34-104) 01/06/23 21:07 Ammonia 85.0 umol/L (18-72) H 01/06/23 21:33 Troponin I High Sens 4.5 pg/ml (0-20) 01/06/23 21:07 Total Protein 7.1 gm/dl (6.0-8.3) 01/06/23 21:07 Albumin 4.3 gm/dl (3.4-5.0) 01/06/23 21:07 Globulin 2.8 gm/dl (2.5-4.0) 01/06/23 21:07 Albumin/Globulin Ratio 1.5 (0.9-2) 01/06/23 21:07 POC Stool Occult Blood Positive (Negative) A 01/06/23 21:18 Ethyl Alcohol mg/dL 331.2 mg/dl (<10.0) H 01/06/23 21:07 SARS-CoV-2, RNA, NAAT NEGATIVE (NEGATIVE) 01/06/23 Unknown Blood Type B Positive 01/06/23 21:07 Blood Type Recheck B Positive 01/06/23 21:34 Antibody Screen NEGATIVE 01/06/23 21:07 Impressions Abdomen/Pelvis CT 01/06/23 21:17 Exam(s): CT ABDOMEN + PELVIS With Contrast IV Amt: 91 ML OPTIRAY 320 EXAM: CT Abdomen and Pelvis With Intravenous Contrast CLINICAL HISTORY: Reason for exam: gi bleed. TECHNIQUE: Axial computed tomography images of the abdomen and pelvis with intravenous contrast. Automated exposure control was utilized for the study. A dose lowering technique was utilized adhering to the principles of ALARA. CONTRAST: Patient received 91 ML OPTIRAY 320 of IV contrast COMPARISON: No relevant prior studies available. FINDINGS: Lung bases: Unremarkable. No mass. No consolidation. ABDOMEN: Liver: Unremarkable. No mass. Gallbladder and bile ducts: The gallbladder is contracted. Slight gallbladder wall thickening is present. No gallstones or definite surrounding edema. No ductal dilation. Pancreas: Unremarkable. No mass. No ductal dilation. Spleen: Unremarkable. No splenomegaly. Adrenals: Unremarkable. No mass. Kidneys and ureters: Unremarkable. No solid mass. No hydronephrosis. Stomach and bowel: Unremarkable. No obstruction. No mucosal thickening. PELVIS: Appendix: The appendix is normal. Bowel loops are nondilated. No acute inflammatory changes are seen involving the bowel. Bladder: Unremarkable. No mass. Reproductive: Unremarkable as visualized. ABDOMEN and PELVIS: Intraperitoneal space: Unremarkable. No free air. No significant fluid collection. Bones/joints: Moderate multilevel degenerative changes are seen throughout the spine. No acute fracture or subluxation is seen. Soft tissues: 1 cm umbilical hernia containing fat. Vasculature: The abdominal aorta is mildly calcified but nondilated. There is no aneurysm or dissection. Lymph nodes: Unremarkable. No enlarged lymph nodes. IMPRESSION: The appendix is normal. Bowel loops are nondilated. No acute inflammatory changes are seen involving the bowel. No GI hemorrhage is identified. No acute process is seen within the abdomen or pelvis. Electronically signed by: Fuentes Villalobos MD 01/06/23 23:[address] 01/06/23 21:17 Exam(s): CT HEAD Without Contrast EXAM: CT Head Without Intravenous Contrast CLINICAL HISTORY: Reason for exam: fall. TECHNIQUE: Axial computed tomography images of the head/brain without intravenous contrast. Automated exposure control was utilized for the study. A dose lowering technique was utilized adhering to the principles of ALARA. COMPARISON: No relevant prior studies available. FINDINGS: Brain: Unremarkable. No hemorrhage. No significant white matter disease. No edema. Ventricles: Unremarkable. No ventriculomegaly. Bones/joints: Unremarkable. No acute fracture. Soft tissues: Unremarkable. Sinuses: Unremarkable as visualized. No acute sinusitis. Mastoid air cells: Unremarkable as visualized. No mastoid effusion. IMPRESSION: Normal head/brain CT. Electronically signed by: Fuentes Villalobos MD 01/06/23 23:00 PM Hospital Course (1) Alcohol overdose: 67yo Male with PMH HLD HTN BPH CKD3 here for syncope hematochezia. Syncope -Alcohol level on admission= 330, syncope likely secondary to this -hbg 11.2 on admission, 9.9 upon discharge - Cardiac workup unremarkable -EKG NSR, continue to monitor on telemetry. No events to date. -trop negative -TTE with mild concentric LVH, EF= 60-65% -orthostatics negative -CT head wnl -CT A/P:The appendix is normal. Bowel loops are nondilated. No acute inflammatory changes are seen involving the bowel. No GI hemorrhage is identified. No acute process is seen within the abdomen or pelvis.no noted diverticuli Hematochezia -started on Protonix 40mg daily - no further episodes of hematochezia -consult placed to GI- plan inpatient EGD/colonoscopy as he has been hemodynamically stable - Will need GI f/u as an outpatient -Repeat CBC with PCP in 1 week Alcohol Abuse -patient notes 2-3 beers daily, maximum of 6 beers a day -ordered AWSS; no signs of withdrawal -ammonia 88 -AST elevated consistent with alcohol use - thiamine, folate supplementation, recommend that he continue upon discharge CKD Stage 3 - creatine of 1.69 upon discharge, slightly elevated from prior - encourage hydration - repeat BMP next week HTN -continue lisinopril HLD -continue fenofibrate BPH -continue tamsulosin (2) Acute lower GI bleeding: (3) Hematochezia: (4) CKD (chronic kidney disease): (5) BPH (benign prostatic hyperplasia): (6) HLD (hyperlipidemia): (7) HTN (hypertension): (8) Syncope: Total Time Total Time Spent Total Time Spent (In Minutes): see attending attestation Discharge Plan Discharge Items Patient Disposition: Home - Self-Care Reason For Visit: SYNCOPE GI BLEED Discharge Diagnosis: Anemia Activity: Per Instructions section Non-emergency contact: Primary Care Provider Call non-emergency contact if: you have any medication questions Follow-up/Referrals: Sam Arauz MD [Physician] - Yareli Winston D.O. [Primary Care Provider] - Diet: Regular Addtl Attending Provider Instructions: You were admitted for a syncopal episode and concern for GI bleeding. On admission your alcohol level was elevated. We did a number of tests to look for a cardiac reason that you could have passed out and all of those tests came back negative. Your blood counts have remained stable, although they are low. We would like you to follow up with the GI doctors for further evaluation of this. Their office should reach out to you to schedule an appointment, if you do not hear from them you can call their office at [phone]. You should also make an appointment to see your primary care doctor within the next week. When you see your primary care doctor we would like them to order a repeat blood count for you. We sent a prescription for pantoprazole to your pharmacy, please take this daily. Your creatine (kidney function number) was mildly elevated. Please make sure that you are drinking plenty of water. Your primary care doctor should repeat labs next week to check this two. We would like you to take folate and thiamine. We sent these vitamins to your pharmacy. Try to avoid/limit your alcohol intake. If you were to develop bloody stools again please come back to your PCP. Pending Studies at Discharge: No Stand-Alone Forms: [facility] [employer], Smoking Cessation Medications and DC Order Prescriptions: New thiamine HCl (vitamin B1) 100 mg Tablet 100 mg PO QAM 30 Days Qty: 30 0RF folic acid 400 mcg Tablet 400 mcg PO QAM 30 Days Qty: 30 0RF pantoprazole 40 mg Tablet,Delayed Release (Dr/Ec) 40 mg PO QAM 30 Days Qty: 30 0RF Continued tamsulosin 0.4 mg capsule 0.4 mg PO DAILY lisinopril 40 mg tablet 40 mg PO DAILY fenofibrate nanocrystallized 145 mg tablet 145 mg PO DAILY Discharge Orders: Discharge Order (Routine); Ordered 01/08/23 Ordered By: Saranya Waldrop Admission Data Admit Date/Time: 01/07/23 00:00 Attending Provider: Claudio Schumacher Admit Provider: Rhonda Hatch Primary Care Provider: Yareli Winston Other Providers: Vanessa Villalobos ; Salimi,Sam Other Interventions: Discharge Summary Assessment (RN) Last Done: 01/08/23 16:50 Supervising Physician Co-Signing Physician Notes Attending attestation Pt seen and examined in concert with Dr. Waldrop. In agreement with the documented findings as noted in the resident documentation with any exceptions or additions as noted here. Resting comfortably in bed without complaint at present. Endorses intermittent alcohol use of limited quantity but is agreeable re: the impact of alcohol use on his illness and, when advised that cessation would be beneficial, agrees with the sentiment but defers assistance at this time. on discussion of hematochezia today, reports previous episodes of similar with ?polyps on recent colonoscopy (potentially hemorrhoids). On examination, S1/S2 nl RRR no MCG. CTAB. Abd NT/ND BS+ve Loss of consciousness - imaging and evaluation as noted above. TTE without causative pathology. etOH elevated to 332 on admission and likely primary contributor. Hematochezia - no episodes reported, hgb stable. FOBT negative. Alcohol use disorder - AWSS in hospital without lorazepam use, precontemplative re: cessation and declined resources. Else see resident documentation as noted. Total attending physician time spent with this patient's care on the day of discharge: 35 minutes. Resident Activity Tracking Resident Involvement: Resident Care Provided Care Provided: Adult Hospital Medicine
== END 2023-01-08 17:15 | disposition home or self-care (01) | DRG 378 ==
LOC: ED 20:42 → 2S 01-07 → SUATTDRO 01-07 → INTOOBSV 01-07 → 2S 01-07 01:14